=== PATIENT | female | born 1985 | race Caucasian/White ===

== ENCOUNTER 2019-07-20 15:08 | Outpatient (REF) | payer OTHER, SELFPAY ==
[2019-07-24 10:05] LABS: COVID-19 RT-PCR Result Not Detected (NotDetected)
== END 2019-07-20 15:28 ==
LOC: NCHCN 15:08
PROVIDERS: PCP Internal Medicine; Visit Provider Family Medicine
DX: Z20.828 Contact with and (suspected) exposure to other viral communicable diseases (principal); R05 Cough
CPT/HCPCS: U0003

== ENCOUNTER 2020-08-08 15:35 | Outpatient (REF) | payer OTHER, SELFPAY ==
--- NOTE | 2020-08-08 14:20 | PAPFT_PTH ---
PATIENT: Mary Cary LOC: [facility] U#:[id number] AGE/SX: 34/F ROOM: RE08/08/[address]: Eugenia Peraza : 1985 BED: DIS: 08/08/2020 SPEC #: [id number] RECD: 08/09/20 12:55 STATUS: MIKE REJulianne #: [id number] SELINA: 08/08/20 14:[address]: Eugenia Peraza DEPT: [facility] Cytology RECD BY: Bettie Ray ENTERED: 08/09/20 12:55 SP TYPE: PAPFT OTHR DR: Acosta Mendoza Tissues: 1 - CX/ENDOCX FOR PAP SMEARS Procedures: PAP THIN PREP/[facility] Screening HPV DNA PROBE Comments: [id number]
== END 2020-08-08 15:36 | disposition home or self-care (01) ==
LOC: NCHCN 15:35
PROVIDERS: PCP Internal Medicine; Visit Provider Family Medicine
DX: Z00.00 Encounter for general adult medical examination without abnormal findings (principal); Z12.4 Encounter for screening for malignant neoplasm of cervix; Z01.419 Encounter for gynecological examination (general) (routine) without abnormal findings; Z11.51 Encounter for screening for human papillomavirus (HPV)
CPT/HCPCS: 88142; 87624

== ENCOUNTER 2023-10-31 09:49 | Outpatient (REF) | payer OTHER, SELFPAY ==
[2023-10-29 17:34] LABS: ALT 73 U/L (14-59); AST 43 U/L (15-37); Albumin 3.8 g/dL (3.4-5.0); Alkaline Phosphatase 107 U/L (46-116); Anion Gap 9.1 mmol/L (3-11); BUN 10 mg/dL (7-18); Bilirubin, Total 0.27 mg/dL (0.2-1.0); CO2 28.9 mmol/L (21.0-32.0); CREATININE 0.9 mg/dL (0.55-1.02); Calculated LDL 141 mg/dL (<100); Chloride 104 mmol/L (98-107); Cholesterol 207 mg/dL (<200); Estimated GFR 84.97 (mL/min/1.73m2); Glucose 95 mg/dL (74-106); HDL Cholesterol 50 mg/dL (40-60); Potassium 4.2 mmol/L (3.5-5.1); Sodium 142 mmol/L (136-145); TSH (W/Ref FT4) 3.71 uIU/mL (0.36-3.74); Total Protein 7.3 g/dL (6.4-8.2); Triglyceride 83 mg/dL (<150)
[2023-11-01 08:50] LABS: Prolactin 8.5 ng/mL (See Note)
[2023-11-01 08:55] LABS: FSH 7.5 mIU/mL (See Note)
[2023-11-09 15:09] LABS: Testosterone, Free 0.95 ng/dL (<0.13-1.00); Testosterone, Total 33 ng/dL (8-60)
== END 2023-10-31 09:50 | disposition home or self-care (01) ==
LOC: NCHCN 09:49
PROVIDERS: PCP Family Medicine; Visit Provider Family Medicine
DX: N92.6 Irregular menstruation, unspecified (principal); R79.89 Other specified abnormal findings of blood chemistry; E66.9 Obesity, unspecified; Z13.1 Encounter for screening for diabetes mellitus
CPT/HCPCS: 80053; 80061; 84402; 84403; 83001; 83036; 84146; 84443

== ENCOUNTER 2024-11-08 03:43 | Outpatient (CLI) | payer OTHER, SELFPAY ==
[2024-11-08 11:26] LABS: Hemoglobin A1C 6.1 % (<5.7)
[2024-11-08 11:38] LABS: ALT 61 U/L (14-59); AST 47 U/L (15-37); Albumin 3.4 g/dL (3.4-5.0); Alkaline Phosphatase 98 U/L (46-116); Anion Gap 7.5 mmol/L (3-11); BUN 9 mg/dL (7-18); Bilirubin, Total 0.3 mg/dL (0.2-1.0); CO2 27.5 mmol/L (21.0-32.0); Calcium 9.1 mg/dL (8.5-10.1); Calculated LDL 126 mg/dL (<100); Chloride 103 mmol/L (98-107); Cholesterol 200 mg/dL (<200); Estimated GFR 114.16 (mL/min/1.73m2); Glucose 107 mg/dL (74-106); HDL Cholesterol 47 mg/dL (>or=50); Potassium 3.9 mmol/L (3.5-5.1); Sodium 138 mmol/L (136-145); TSH (W/Ref FT4) 2.24 uIU/mL (0.36-3.74); Total Protein 7.5 g/dL (6.4-8.2); Triglyceride 137 mg/dL (<150)
== END 2024-11-08 03:44 | disposition home or self-care (01) ==
PROVIDERS: PCP Family Medicine; Visit Provider Family Medicine
DX: Z68.43 Body mass index [BMI] 50.0-59.9, adult (principal); K76.0 Fatty (change of) liver, not elsewhere classified
CPT/HCPCS: 36415; 80053; 80061; 83036; 84443

== ENCOUNTER → 2025-04-27 00:08 | Outpatient (CLI) | payer OTHER, SELFPAY ==
--- NOTE | 2025-04-27 08:00 | DI.RAD_ITS ---
Exam(s) RF BARIUM SWALLOW EXAM: RF BARIUM SWALLOW CLINICAL HISTORY: Intermittent dysphagia for greater than a year R13.12 TECHNIQUE: 2D and realtime digital imaging was performed. CONTRAST MATERIAL: Oral barium Oral water soluble contrast was administered. COMPARISON: No exams were available for comparison FINDINGS: ESOPHAGRAM: Performed both standing and recumbent with air-contrast technique The swallowing mechanism appears intact. No evidence of penetration or aspiration. No evidence of hypertense upper esophageal sphincter and no evidence of prominent cervical osteophytes indenting the barium column. Also no evidence of Zenker's diverticulum. Esophagus exhibits normal diameter with no evidence of fixed lesions, strictures, nor achalasia. There is also no evidence of hiatal hernia. No tertiary waves demonstrated. Minimal if any reflux demonstrated. IMPRESSION: No significant focal findings on this esophagram study. Given the history here if clinically indicated follow-up modified barium swallow can be performed in our department in conjunction with the speech therapist. RADIATION DOSE DELIVERED: milton Haywood=94.3 mGy
[2025-04-27] MEDS: Simethicone/Sod Bicarb/Cit Ac, 4 gram PACKET 1 PACKET PO (11:20)
[2025-04-27] MEDS: Barium Sulfate 60% W/V 355 ML BTL PO (11:21)
[2025-04-27] MEDS: Barium Sulfate 98% W/W 140 ML BTL PO (11:22)
== END ==
LOC: DI 00:08
PROVIDERS: PCP Family Medicine; Visit Provider Registered Nurse Maternal Newborn
DX: R13.12 Dysphagia, oropharyngeal phase (principal)
CPT/HCPCS: 74221; J3490